=== PATIENT | female | born 1955 | race American Indian/Alaskan Native ===

== ENCOUNTER 2016-11-25 14:49 | Outpatient (CLI) | payer MEDICARE, OTHER | END 2016-11-25 14:50 | disposition home or self-care (01) | LOC: LABHHL 14:49 | PROVIDERS: ATTEND Surgery | DX: D05.11 Intraductal carcinoma in situ of right breast (principal); N63 Unspecified lump in breast; I10 Essential (primary) hypertension | CPT/HCPCS: 88305; 88361 ==

== ENCOUNTER 2016-12-02 13:43 | Outpatient (CLI) | payer MEDICARE ==
--- NOTE | 2016-12-03 11:47 | Magnetic Resonance Report ---
BILATERAL BREAST MRI WITHOUT AND WITH CONTRAST: 12/02/16 13:43:00 CLINICAL: Newly diagnosed right breast cancer. Status post right ultrasound biopsy 11/24/16 with pathologic diagnosis of invasive ductal carcinoma, [place] grade I/III. COMPARISON:10/03/16 bilateral screening mammogram and right mammograms from 11/07/16 and 11/24/16. TECHNIQUE: Axial 1.0-mm T1 without, axial high resolution 2.0-mm T2 and axial 1.0-mm dynamic Vibrant high-resolution postcontrast T1 fat saturation sequences on a 1.5 Corie magnet. The examination was performed with an 8 channel dedicated Sentin[place] breast coil. Post processing with CAD and subtraction was performed on an [employer] workstation. 20 cc of Multihance was injected for the contrast portion of the exam. Consent was obtained prior to the administration of the contrast. FINDINGS: Right: Minimal background parenchymal enhancement. The known cancer is irregular enhancing mass with a biopsy clip in the upper outer quadrant 9.1 cm from the nipple and 6.8 cm from the chest wall. It measures 25.1 x 20.8 x 17.2 mm and demonstrates heterogeneous enhancement with 247% peak enhancement and 42% type III washout. No other mass or suspicious enhancement. No suspicious lymph nodes. Left: Minimal background parenchymal enhancement. No mass or suspicious enhancement of the left breast. No suspicious lymph nodes. IMPRESSION: A 2.5 cm known right breast cancer and no additional lesion of either breast. No suspicious lymph nodes. RIGHT BI-RADS 6 -- Known Cancer LEFT BI-RADS 1 -- Negative
--- NOTE | 2016-12-03 14:18 | Ultrasound Report ---
RIGHT BREAST ULTRASOUND: 12/02/16 13:43:00 CLINICAL: Newly diagnosed right breast cancer. Status post ultrasound biopsy by Dr. Cordova on 11/24/16. This examination is performed for a more comprehensive evaluation of the right breast and right axilla. COMPARISON: Today's bilateral breast MRI and a 11/24/16 right mammogram FINDINGS: Ultrasound of the right breast(including all four quadrants and the retroareolar area) was performed and demonstrated a single solid heterogeneous hypoechoic irregular shadowing mass at 10 o'clock 4 cm from the nipple. It contains a biopsy clip and correlates with the recently identified mammographic mass. The mass measures approximately 1.7 x 1.5 x 1.1 cm. No other mass. Ultrasound of the right axilla demonstrated to lymph nodes with central fat and benign morphology measuring 2.3 x 1.8 x 0.7 cm and 1.3 x 1.0 x 1.2 cm. No suspicious lymph nodes. IMPRESSION: A known right breast cancer at 10 o'clock and no additional suspicious lesion of the breast. No suspicious lymph nodes. BI-RADS 6 -- Known Cancer
== END 2016-12-02 13:44 | disposition home or self-care (01) ==
LOC: SPVWC 13:43 → SPVIMAG 13:43
PROVIDERS: ATTEND Surgery
DX: C50.411 Malignant neoplasm of upper-outer quadrant of right female breast (principal); Z79.899 Other long term (current) drug therapy
CPT/HCPCS: 0159T; 76641; 82962; A9577; C8908; 77059

== ENCOUNTER 2016-12-29 10:02 | Day surgery (SDC) | payer MEDICARE ==
--- NOTE | 2016-12-22 14:12 | Admit Criteria Form ---
Admission Criteria Documentation: AMBULATORY SURGERY EXCEPTION CRITERIA Ambulatory Surgery Exception Criteria ( Place 'X' for any and all applicable criteria): Surgery or procedure performed on ambulatory basis may require inpatient stay for[A] ANY ONE of the following(1)(2)(3)(4)(5)(6)(7)(8)(9): [] I. A preoperative situation, condition, or finding that warrants inpatient stay as indicated by ANY ONE of the following: [] a) Inpatient care needed because of severity of a disease or condition rather than the surgery (eg, severe cardiac or respiratory disease, severe infection) (15) (16 ) (17) (18) [] b) Emergent procedure (eg, angioplasty for acute ischemia)(19) [] c) Complex surgical approach or situation as indicated by ANY ONE of the following(3): [] i) Open approach needed instead of usual endoscopic, transcatheter, or other less invasive procedure [] ii) Difficult approach because of previous operation [] iii) Airway monitoring required after open neck procedures(20)(21) [] iv) Large mass requiring unusually extensive dissection [] v) Additional complicating feature requiring inpatient care (eg, drain management)(22(23): [] d) Major surgery in a pt with high anesthetic risk as indicated by ANY ONE of the following (2)(3)(5)(7)(8): [] i) ASA risk class III or higher (severe systemic disease impairing function) [D] [] ii) Advanced age (eg, older than 85 years)(14)(24) [] iii) Symptomatic heart failure(25) [] iv) Symptomatic asthma or COPD(8)(21) [] v) Morbid obesity with hemodynamic or respiratory problems(20)( 21)(26)(27) [] vi) Obstructive sleep apnea(20)(21) [] vii) Former premature infants who are younger than 60 weeks [] viii) High risk for severe postoperative abnormalities (eg, severe postoperative hypocalcemia after parathyroidectomy for severe hyperparathyroidism)(27)( 28) [] ix) Unstable angina(25) [] e) Drug-related risk requiring inpatient stay as indicated by ANY ONE of the following(5)(10)(14)(32)(33) [] i) Procedure requires discontinuing drugs or other therapy (eg , antiarrhythmic medication, antiseizure medication), which necessitates inpatient observation or treatment.(18)(31) [] ii) Major surgery and high risk drug use as indicated by ANY ONE of the following: [] 1) Active abuse of cocaine or similar drug [] 2) Monoamine oxidase inhibitor use [] 3) Other drug identified as posing risk [] f) Inadequate outpatient care situation as indicated by ANY ONE of the following(5)(10)(14)(32)(33) [] i) Patient lives remote from medical facility and procedure has urgent complication potential, and temporary nearby residence cannot be arranged [] ii) Patient will have postprocedure incapacitation and inadequate assistance at home, or alternative level of care cannot be arranged. [] iii) Patient will have long general anesthesia or procedure side effect resolution time, and competent person to stay with patient on first postoperative night at home or alternative level of care cannot be arranged. []iv) Other inadequate outpatient situation that cannot be handled by other means [] II. A perioperative event, condition, or finding that warrants inpatient stay as indicated by ANY ONE of the following (1)(2)(3): [] a) Inadequate physiologic recovery: cardiovascular, respiratory, or hemodynamic status not normal or near preoperative baseline(18) [] b) Hemodynamic instability [] c) Patient not alert with near normal or baseline mental status [] d) Temperature not normal or as expected and not appropriate for outpatient treatment of condition [] e) Ambulatory or appropriate activity level status not yet achieved post procedure [E](34)(35)(36) [] f) Operative site not appropriate (eg, unexpected or excessive drainage or bleeding) [] g) Postoperative effects not resolved or adequately managed (eg, significant pain or vomiting not appropriate for outpatient or next level of care)(10)(12) [] h) Complicating features requiring inpatient care as indicated by ANY ONE of the following(37): [] i) Severe complications of procedure (eg, bowel injury, airway compromise, vascular injury,severe hemorrhage) [] ii) Extensive (eg, dissection far beyond usual scope of procedure ) or prolonged (eg, 120 minutes beyond usual) surgery needed requiring inpatient postoperative care [] iii) Conversion to an open or complex procedure that requires inpatient care (eg, open vs laparoscopic cholecystectomy, abdominal vs vaginal hysterectomy)(38) [] iv) Comorbid condition or test result identified during or post procedure that requires inpatient care (7) [] v) Malignant hyperthermia(30) [] vi) Other complicating feature requiring inpatient care(22)(23) Inpatient stay may be needed until ALL of the following are present (1)(2)(3)(4) (5)(6)(10)(14)(33)(40): []a) Physiologic recovery: cardiovascular, respiratory, and hemodynamic status normal or near preoperative baseline []b) Hemodynamic stability []c) Patient alert, with near normal or baseline mental status []d) Temperature appropriate: patient afebrile or temperature appropriate for outpt treatment of condition []e) Activity level appropriate: ambulatory or appropriate activity level post procedure []f) Operative site appropriate as indicated by ALL of the following: []i) Site dry or with expected drainage []ii) Any blood noted is as expected for procedure. []g) Postoperative effects resolved or managed as indicated by ALL of the following: []i) Pain management appropriate for outpatient (or next level of) care(10) []ii) Minimal nausea and vomiting: if present, successfully treated with oral medication(12) []iii) Headache, dizziness, or drowsiness (if present) are mild. []h) Voiding status acceptable as indicated by ANY ONE of the following: []i) Voiding spontaneously []ii) No voiding but instructions given for follow-up in 6 to 8 hours []iii) Urinary catheter in place, and instructions given for follow-up []i) Complicating features requiring inpatient care manageable at a lower level of care(37) []j) Comorbid conditions manageable at a lower level of care(37) The original [employer] content created by [employer] has been revised. The portions of the content which have been revised are identified through the use of italic text or in bold, and [facility] has neither reviewed nor approved the modified material. All other unmodified content is copyright [employer]. Please see references footnoted in the original [employer] edition 2016
[~2016-12-29 10:02] MED LIST: WATER FOR IRRIG STERILE IR ONE
--- NOTE | 2016-12-29 11:47 | Anesthesia Day of Surgery ---
Anesthesia Day of Surgery - Day of Surgery Patient Examined: Yes Patient H&P Reviewed: Yes Patient is NPO: Yes
[2016-12-29] MEDS ORDERED: ZOFRAN IV PRN (11:49)
[2016-12-29] MEDS ORDERED: DILAUDID IV PRN (11:49)
--- NOTE | 2016-12-29 11:49 | Anesthesia Consultation ---
Anesthesia Consult and Med Hx Date of service: 12/29/16 - Airway Anesthetic Teeth Evaluation: Good, Caps (GOLD CAP TOP FRONT), Partials ROM Head & Neck: Adequate Mental/Hyoid Distance: Adequate Mallampati Class: Class II Intubation Access Assessment: Probably Good - Pulmonary Exam CTA: Yes - Cardiac Exam Cardiac Exam: RRR - Pre-Operative Health Status ASA Pre-Surgery Classification: ASA3 Proposed Anesthetic Plan: General - Pulmonary Hx Smoking: Yes (STOPPED 1980) Hx Asthma: Yes (NO MEDS) Hx Sleep Apnea: No (PATRICA PRE SCREEN HIGH RISK) - Cardiovascular System Hx Hypertension: Yes (X 40 YRS) - Central Nervous System 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
[2016-12-29] MEDS ORDERED: REGLAN PO NR (12:00)
[2016-12-29] MEDS ORDERED: PEPCID PO NR (12:00)
[2016-12-29] MEDS ORDERED: NACL 0.9% 1000 ML 1,000 ML IV SCH (12:00)
[2016-12-29] MEDS ORDERED: VERSED IV NR (12:00)
[2016-12-29] MEDS ORDERED: NACL BACTERIOSTATIC INFILTRATI ONE (12:02)
[2016-12-29] MEDS ORDERED: DECADRON ONE (12:06)
[2016-12-29] MEDS ORDERED: XYLOCAINE 1% 20 mL ONE ×2 (12:06→13:03)
[2016-12-29] MEDS ORDERED: SUBLIMAZE ONE (12:06)
[2016-12-29] MEDS ORDERED: MARCAINE-EPI 0.5%-1:200,000 INFILTRATI ONE (12:06)
[2016-12-29] MEDS ORDERED: DIPRIVAN 10 MG/ML IV ONE (12:25)
[2016-12-29] MEDS ORDERED: XYLOCAINE MPF 2% ONE (12:26)
[2016-12-29] MEDS ORDERED: DILAUDID ONE (12:26)
--- NOTE | 2016-12-29 12:35 | Operative Report ---
Operative Report Operative Report: Date of service: 12/29/2016 Preoperative diagnosis: Right breast cancer of the upper outer quadrant Postoperative diagnosis: Same Procedure: Right ultrasound-guided partial mastectomy and sentinel lymph node biopsy Surgeon: Carmela Cordova M.D. Anesthesia: Gen. Findings: Right breast mass and clip present within radiograph specimen. 3 sentinel lymph nodes identified Specimens: Right partial mastectomy and sentinel lymph nodes 3 Consultations: None Estimated blood loss: Minimal Disposition: PACU in good condition Indications for operative procedure: This is a 61 year old lady with newly diagnosed Stage I right breast cancer of the upper outer quadrant. Genetic testing performed with negative findings for BRCA1/2. Recommendations were to proceed with the above procedure and she wished to proceed. Procedure in detail: The patient was taken to the operating room. Gen. aneshesia was administer. The right breast and axilla were prepped and draped in the normal sterile operative fashion. Timeout was performed. Known right breast cancer at the 10:00 position 4 cm from the nipple that was appropriately identified using ultrasound and appropriately marked for incision. The nipple was injected with radioisotope to identify the sentinel lymph node. First began with the performance of the sentinel lymph node biopsy. The gamma probe was inserted into the axilla with area of sentinel lymph node location identified. A skin incision was made with 15 blade knife with dissection taken down to subcutaneous tissues. Axillary fascia was opened. The gamma probe was inserted into the axilla and 3 sentinel lymph nodes identified and dissected free. Remaining counts were less than 10% of the highest count. Hemostasis was noted. The axillary fascia was approximated and closed using interrupted 3- 0 Vicryl and the skin brought together and closed using a running 4-0 Monocryl followed by skin affix. Attention was then taken towards the right breast. A lateral upper outer quadrant incision was made with a 15 blade knife and dissection taken down to subcutaneous tissues. First again to raise the superior flap taking down posteriorly to the pectoralis muscle followed by raising of the medial flap, inferior flap and lateral flap with dissection taken down to pectoralis muscle. The breast cancer with its surrounding tissues were removed posteriorly from the pectoralis muscle. Specimen was appropriatly marked and then sent to radiology and pathology. Radiograph breast specimen with clip and mass present. Then proceed with oncoplastic mobilization to ensure cosmesis. Posterior breast tissue was appropriately mobilized with a defect of 7 cm. The breast tissue was approximated and closed using interrupted 3-0 Vicryl and the skin brought together and closed using a running 4-0 Monocryl followed by skin affix. Breast cavity and axilla were anesthetized with 1% lidocaine mixed with quarter percent Marcaine. This concluded the surgery. Patient tolerated surgery very well and she was awakened from anesthesia without any complications and transferred to PACU in good condition.
[2016-12-29] MEDS ORDERED: ANCEF/STERILE WATER 2 GM/20 ML IV NR (13:00)
[2016-12-29] MEDS ORDERED: MARCAINE 0.25% INFILTRATI ONE ×2 (13:03→13:21)
[2016-12-29] MEDS ORDERED: XYLOCAINE 1% 20 mL INFILTRATI ONE (13:21)
[2016-12-29] MEDS ORDERED: WATER FOR IRRIG STERILE IR ONE (13:21)
[2016-12-29] MEDS ORDERED: ZOFRAN ONE (13:55)
--- NOTE | 2016-12-29 14:54 | Short Stay Summary ---
Short Stay Documentation Date of service: 12/29/16 - History H&P: obtained from office - Allergies and Medications Current Medications: Allergies tetracycline [Tetracycline] Allergy (Verified 12/17/16 11:57) Vomiting Home Medications Medication Instructions Recorded Confirmed Last Taken Type Enalapril/Hydrochlorothiazide 1 tab PO DAILY 06/18/13 12/29/16 12/28/16 History [Enalapril-Hctz 5-12.5 mg] Hydroxyzine HCl [hydrOXYzine] 25 mg PO TID 06/18/13 12/29/16 12/28/16 History Sertraline [Zoloft] 200 mg PO DAILY 06/18/13 12/29/16 12/28/[address] [Yessiaredianna Dr] 75 mg PO DAILY 12/17/16 12/29/16 1 Week Ago History Naproxen Sodium [Aleve TAB] 2 tab PO DAILY 12/17/16 12/29/16 1 Week Ago History Omeprazole Magnesium [PriLOSEC Otc] 20 mg PO QDAY 12/17/16 12/29/16 1 Week Ago History Simvastatin [Zocor TAB] 20 mg PO QHS 12/17/16 12/29/16 12/28/16 History Acetaminophen [Shake That Ache] 500 mg PO PRN PRN 12/29/16 12/29/16 12/28/16 History Antiarthritic Combination No.2 900 mg PO DAILY 12/29/16 12/29/16 1 Week Ago History [Glucosamine-Chondroitin] HYDROcodone/APAP 5-325 [[place] 1 each PO Q6HR PRN #30 tablet 12/29/16 Unknown Rx 5/325] Active Medications Cefazolin Sodium (Ancef/Sterile Water 2 Gm/20 Ml) 2 gm IV PREOP NR Stop: 12/29/16 23:29 Famotidine (Pepcid) 20 mg PO PREOP NR Stop: 12/29/16 23:59 Last Admin: 12/29/16 12:08 Dose: 20 mg Hydromorphone HCl (Dilaudid) 0.5 mg IV Q10MIN PRN PRN Reason: Pain , Severe (7-10) Stop: 12/29/16 20:00 Sodium Chloride (Nacl 0.9% 1000 Ml) 1,000 mls @ 75 mls/hr IV DIRECT ALFRED Last Admin: 12/29/16 12:10 Dose: 75 mls/hr Metoclopramide HCl (Reglan) 10 mg PO PREOP NR Stop: 12/29/16 18:00 Last Admin: 12/29/16 12:08 Dose: 10 mg Midazolam HCl (Versed) 2 mg IV PREOP NR Stop: 12/29/16 23:59 Last Admin: 12/29/16 12:24 Dose: 2 mg Ondansetron HCl (Zofran) 4 mg IV ONCE PRN PRN Reason: Nausea And Vomiting Stop: 12/29/16 18:00 - Brief post op/procedure progress note Date of procedure: 12/29/16 Pre-op diagnosis: Right breast cancer of the upper outer Post-op diagnosis: same Procedure: Ultrasound guided right partial mastectomy with SLNB Anesthesia: GETA Findings: Wire and mass present within radiograph specimen; 3 SLNs Surgeon: BEV HAMMOND Estimated blood loss: minimal Pathology: list (right partial mastectomy and x3SLNs) Specimen disposition: to lab Condition: stable - Disposition Condition at discharge: Good Disposition: DC-01 TO HOME OR SELFCARE Short Stay Discharge Plan Activity: other (no heavy lifting) Diet: regular Wound: other (keep incision clean and dry; may shower in 24 hours; no baths, pools or lakes; do not rub or scrub incision) Follow up with: PRIMARY MD PRABHA [Primary Care Provider] - 7 Days BEV HAMMOND MD [Staff Physician] - 7 Days Prescriptions: HYDROcodone/APAP 5-325 [[place] 5/325] 1 each PO Q6HR PRN #30 tablet PRN Reason: Pain
[2016-12-29] MEDS ORDERED: NORMODYNE IV PRN (15:00)
--- NOTE | 2016-12-29 15:01 | Post Anesthesia Evaluation ---
- Post Anesthesia Evaluation Patient Participated: Yes Airway Patent: Yes Stable Respiratory Function: Yes Nausea/Vomiting: No Temp > 96.8F: Yes Pain Manageable: Yes Adequeate Hydration: Yes Anesthesia Complications: No Block Receding Appropriately: Not Applicable Patient on Ventilator: No
--- NOTE | 2016-12-29 15:21 | Mammography Report ---
Operative specimen mammogram: A single tissue specimen is submitted that contains a soft tissue nodule with a central biopsy marker.
[2016-12-29 16:15] VITALS: BP 130/70
[2016-12-29] MEDS ORDERED: NORCO 5/325 PO ONE (16:39)
== END 2016-12-29 17:05 | disposition home or self-care (01) ==
LOC: OR 10:02
PROVIDERS: ATTEND Surgery
DX: C50.411 Malignant neoplasm of upper-outer quadrant of right female breast (principal); D64.9 Anemia, unspecified; I10 Essential (primary) hypertension; J45.909 Unspecified asthma, uncomplicated; G51.0 Bell's palsy; F32.9 Major depressive disorder, single episode, unspecified; K21.9 Gastro-esophageal reflux disease without esophagitis; E11.9 Type 2 diabetes mellitus without complications; E66.9 Obesity, unspecified; Z68.34 Body mass index [BMI] 34.0-34.9, adult; Z88.1 Allergy status to other antibiotic agents; Z79.899 Other long term (current) drug therapy; Z98.890 Other specified postprocedural states; Z85.42 Personal history of malignant neoplasm of other parts of uterus; Z87.891 Personal history of nicotine dependence; Z80.3 Family history of malignant neoplasm of breast
CPT/HCPCS: 19301; 38525; 76098; 78800; 82962; 88307; 88333; 88341; 88342; A9541; J0690; J1170; J2250; J2405; J2704; J7030; J1100; J3010

== ENCOUNTER 2020-05-30 10:42 | Outpatient (CLI) | payer MEDICARE ==
--- NOTE | 2020-05-30 12:43 | Mammography Report ---
BILATERAL DIGITAL SCREENING MAMMOGRAM WITH CAD HISTORY: Screening mammogram, status post right breast lumpectomy. TECHNIQUE: Routine digital mammographic imaging performed. This examination was interpreted with michael solis benefit of Computer-aided Detection analysis. COMPARISON: 10/04/2018, 10/05/2017, 10/03/2016. FINDINGS: Breast Density: scattered fibroglandular appearance of the breast tissue. Digital CC and MLO views demonstrate no mammographic evidence of malignancy. Stable lumpectomy quigley e in the right upper outer posterior breast. IMPRESSION: No mammographic evidence of malignancy. If the clinical examination remains stable, recommend bilate ral mammogram in approximately one year. BIRADS 2: Benign Finding(s). FURTHER INFORMATION: According to the [employer], yearly mammograms are recommend ed starting at age 40 and continuing as long as a woman is in good health. Clinical Breast Exams shou ld be part of a periodic health exam-about every 3 years for women in their 20s and 30s and every yea r for women 40 and over. Breast self exam is an option for women starting in their 20s. Any breast ch tameka noted on a breast self exam should be reported promptly to the patient's healthcare provider. Br east MRI is recommended for women with an approximately 20-25% or greater lifetime risk of breast can cer, including women with a strong family history of breast or ovarian cancer and women who have been treated for Hodgkin's disease. A negative Mammography report should not discourage follow up or biopsy of a clinically significant f inding and/or abnormality. Dense breast tissue may obscure small neoplasms. The patient will be entered into a reminder system with a target due date for the next screening mamm ogram. Signer Name: Ravin Echevarria MD Signed: 05/30/2020 12:38 PM Workstation Name: [id number]
== END 2020-05-30 10:43 | disposition home or self-care (01) ==
LOC: SPVWC 10:42
PROVIDERS: ATTEND Surgery
DX: Z12.31 Encounter for screening mammogram for malignant neoplasm of breast (principal)
CPT/HCPCS: 77067